=== PATIENT | female | born 1990 | race Caucasian/White ===

== ENCOUNTER 2017-10-10 08:41 | Inpatient (IN) | payer OTHER ==
[~2017-10-10] VITALS: Ht 152.4 cm; Wt 74.4 kg
[2017-10-10 08:44] VITALS: Ht 152.4 cm; Wt 74.4 kg
[2017-10-10 09:22] LABS: BASOPHIL % 0.5 % (0-2); PLATELET COUNT 284 x10^3mcL (130-400); RED CELL DISTRIBUTION WIDTH 13.6 % (11.5-14.5)
[2017-10-10 09:41] LABS: CALCIUM 8.3 mg/dL (8.5-10.1); CARBON DIOXIDE 20.8 mmol/L (21-32); CHLORIDE SERUM 105 mmol/L (98-107); CREATININE SERUM 0.8 mg/dL (0.6-1.0); GFR1 > 60 mL/min; GLUCOSE SERUM 119 mg/dL (74-106); POTASSIUM SERUM 3.3 mmol/L (3.5-5.1); SODIUM SERUM 139 mmol/L (136-145)
[2017-10-10 09:46] LABS: ALBUMIN 3.7 g/dL (3.4-5.0); ALKALINE PHOSPHATASE 94 U/L (46-116); ALT/SGPT 40 U/L (14-59); AMYLASE 50 U/L (25-115); AST/SGOT 18 U/L (15-37); BILIRUBIN TOTAL 0.2 mg/dL (0.20-1.00); LIPASE 108 IU/L (73-393); TOTAL PROTEIN, SERUM 7.3 g/dL (6.4-8.2)
[2017-10-10 11:11] LABS: microscopic required? YES; urine erythrocyte 3+ (NEGATIVE)
[2017-10-10 14:29] LABS: T3 TOTAL 1.19 ng/mL
[2017-10-10 14:40] VITALS: BP 100/67
[2017-10-10 14:47] LABS: MAGNESIUM 1.9 mg/dL (1.8-2.4); PHOSPHOROUS 2.6 mg/dL (2.5-4.9)
[2017-10-10 14:49] LABS: CHOLESTEROL/HDL RATIO 5.6; FREE T4 0.89 ng/dL (0.76-1.46); FREE THYROXINE INDEX 2.3 ug/dL (1.4-4.5); T4(THYROXINE) 6.7 ug/dL (4.7-13.3)
[2017-10-10 17:37] VITALS: BP 98/57
[2017-10-10 18:57] LABS: AMPHETAMINE QUAL UR NONE DETECTED (See below)
[2017-10-10 21:35] VITALS: BP 90/47
[2017-10-11 05:06] VITALS: BP 99/57
[2017-10-11 06:40] LABS: BASOPHIL % 0.3 % (0-2); PLATELET COUNT 209 x10^3mcL (130-400); RED CELL DISTRIBUTION WIDTH 13.9 % (11.5-14.5)
[2017-10-11 07:39] LABS: CALCIUM 7.8 mg/dL (8.5-10.1); CARBON DIOXIDE 23.7 mmol/L (21-32); CHLORIDE SERUM 109 mmol/L (98-107); CREATININE SERUM 0.8 mg/dL (0.6-1.0); GFR1 > 60 mL/min; GLUCOSE SERUM 90 mg/dL (74-106); MAGNESIUM 1.8 mg/dL (1.8-2.4); PHOSPHOROUS 3.1 mg/dL (2.5-4.9); POTASSIUM SERUM 3.9 mmol/L (3.5-5.1); SODIUM SERUM 141 mmol/L (136-145)
[2017-10-11 10:19] VITALS: BP 103/64
[2017-10-11] MEDS ORDERED: FLO4 PO (10:38)
[2017-10-11] MEDS ORDERED: FLE10 PO (10:57)
[2017-10-11] MEDS ORDERED: NORCO1 TA2 PO (10:58)
[2017-10-11] MEDS ORDERED: ZOFRAN4 M3 PO (11:30)
[2017-10-11 11:50] VITALS: BP 103/64
== END 2017-10-11 12:35 | disposition home or self-care (01) | DRG 465 ==
LOC: ED 08:41 → DU 13:18
PROVIDERS: Family Medicine; Specialist
DX: N13.2 Hydronephrosis with renal and ureteral calculous obstruction (principal); E78.5 Hyperlipidemia, unspecified; E87.6 Hypokalemia; M54.9 Dorsalgia, unspecified; R31.9 Hematuria, unspecified; F17.210 Nicotine dependence, cigarettes, uncomplicated; E66.3 Overweight; Z68.32 Body mass index [BMI] 32.0-32.9, adult
CPT/HCPCS: 83880; 84439; J1170; J1885; J2270; J2405; J2550; J3010; J7030; Q0092; Q9967

== ENCOUNTER 2019-10-08 15:00 | Emergency (ER) | payer OTHER ==
[~2019-10-08] VITALS: Ht 152.4 cm; Wt 62.1 kg
[~2019-10-08 15:00] MED LIST: FLE10 PO; FLO4 PO; NORCO1 TA2 PO; ZOFRAN4 M3 PO
[2019-10-08 15:11] VITALS: Ht 152.4 cm; Wt 62.1 kg
[2019-10-08 17:04] LABS: BASOPHIL % 0.3 % (0-2); PLATELET COUNT 248 x10^3mcL (130-400)
[2019-10-08 17:10] LABS: CALCIUM 8.5 mg/dL (8.5-10.1); CARBON DIOXIDE 26.9 mmol/L (21-32); CHLORIDE SERUM 102 mmol/L (98-107); CREATININE SERUM 0.5 mg/dL (0.6-1.0); GFR1 > 60 mL/min; GLUCOSE SERUM 77 mg/dL (74-106); POTASSIUM SERUM 3.6 mmol/L (3.5-5.1); SODIUM SERUM 136 mmol/L (136-145)
[2019-10-08 17:13] LABS: RED CELL DISTRIBUTION WIDTH 15.4 % (11.5-14.5)
[2019-10-08 17:16] LABS: ALBUMIN 3.1 g/dL (3.4-5.0); ALKALINE PHOSPHATASE 55 U/L (46-116); ALT/SGPT 15 U/L (14-59); AST/SGOT 11 U/L (15-37); BILIRUBIN TOTAL 0.2 mg/dL (0.20-1.00); TOTAL PROTEIN, SERUM 6.6 g/dL (6.4-8.2)
[2019-10-08 18:02] VITALS: BP 107/73
== END 2019-10-08 18:02 | disposition home or self-care (01) ==
LOC: ED 15:00
PROVIDERS: Emergency Medicine
DX: O20.0 Threatened abortion (principal); R19.7 Diarrhea, unspecified; Z3A.14 14 weeks gestation of pregnancy; Z87.442 Personal history of urinary calculi; Z87.19 Personal history of other diseases of the digestive system
CPT/HCPCS: 36415; 87046; 87046-59; Q0092